=== PATIENT | female | born 1950 | race Caucasian/White ===

== ENCOUNTER → 2017-12-11 13:22 | Outpatient (CLI) | payer MEDICARE, OTHER, SELFPAY ==
--- NOTE | 2017-12-11 13:24 | DI.US.S_ITS ---
PROCEDURE: US PERIPH VENOUS LOW EXTREM RT INDICATIONS: RIGHT CALF EDEMA TECHNIQUE: Real-time imaging, as well as color and pulse Doppler interrogation, were performed of the lower extremity deep veins from the inguinal ligament to the popliteal fossa. COMPARISON: None. FINDINGS: The deep veins are normally compressible, and free of intraluminal thrombus. Color and pulse Doppler demonstrate normal phasic intraluminal flow. There is normal augmentation response to distal compression maneuver. Complex hypoechoic lesions correspond to palpable calf lumps that measure 0.9 x 0.7 x 1.6 cm and 1.7 x 0.8 x 1.4 cm. Lesions have nonspecific imaging characteristics, but hematomas are in the differential; please correlate with clinical findings. IMPRESSION: No evidence of deep vein thrombosis involving the right lower extremity. Dictated by: Negrita Leahy MD, PhD on 12/11/2017 at 14:17 Approved by: Negrita Leahy MD, PhD on 12/11/2017 at 14:19
== END ==
PROVIDERS: PCP Physician Assistant Medical; Visit Provider Physician Assistant
DX: R60.0 Localized edema (principal)
CPT/HCPCS: 93971

== ENCOUNTER 2017-12-16 14:03 | Emergency (ER) | payer MEDICARE, OTHER, SELFPAY ==
[2017-12-16 14:06] VITALS: BP 139/81; PULSE 84; RESP 20; TEMP 36.2; O2SAT 97; BMI 33.7
--- NOTE | 2017-12-16 15:28 | PC.NURSE ---
Addendum entered by Summer Duque R.N. 12/16/17 16:01: Pt c/o 4/10 chest pressure to provider. Did not appreciate any shortness of breath. Original Note: Pt has a knot on the posterior right calf that is painful to touch. She has developed bruising down the posterior calf and lateral ankle with no known injury. Pulses equal, skin warm, dry and intact. Pt recently had a right leg ultrasound at a walk in clinic, which she was told was negatived for DVT. Lung sounds are equal and clear. No shortness of breath or chest pain.
[2017-12-16 15:30] VITALS: BP 137/101; PULSE 82; O2SAT 98
--- NOTE | 2017-12-16 15:38 | ED.CHESTPAIN ---
HPI - Chest Pain <Lois SandovalCEASARP-BC - Last Filed: 12/16/17 21:38> General Chief Complaint: Extremity Problem,Nontraumatic Stated Complaint: SWOLLEN RIGHT LEG, EDEMA IN BOTH LEGS Time Seen by Provider: 12/16/17 15:42 Source: patient and family Mode of arrival: ambulatory Limitations: no limitations History of Present Illness HPI narrative: Patient presents with complaint of lower leg swelling bilaterally. She states that her daughter's friend who was the doctor saw her legs yesterday and said that she had edema and might be in heart failure. She also complains of chest pressure that radiates to her left arm for approximately 4 days. This has been constant. She states nothing makes it better or worse. She also feels short of breath at this time. She does have a history of high blood pressure, high cholesterol and has had a CVA. She took 1 baby aspirin. She also complains of lightheadedness and dizziness. She was seen at the walk-in clinic on the for right lower leg swelling and bruising. She states she felt a knot in her right lower leg. She had a negative vascular ultrasound for clot and findings included a hypoechoic lesion that corresponds to palpable cuff lumps. She currently states that her chest pressure is approximately 4/10. She complains of associated nausea. She denies any specific injury or fall to her right lower extremity. Related Data Home Medications Medication Instructions Recorded Confirmed albuterol sulfate HFA 90 2 puff INHALATION Q6H 12/11/17 12/16/17 mcg/actuation aerosol inhaler amlodipine 5 mg tablet 5 mg PO DAILY 12/11/17 12/16/17 atorvastatin 10 mg tablet 10 mg PO DAILY 12/11/17 12/16/17 cevimeline 30 mg capsule 1 cap PO TID 12/11/17 12/16/17 duloxetine 30 mg capsule,delayed 30 mg PO BEDTIME 12/11/17 12/16/17 release fluticasone 200 mcg-vilanterol 25 1 inhalation INHALATION DAILY 12/11/17 12/16/17 mcg/dose powder for inhalation gabapentin 100 mg capsule 100 mg PO TID 12/11/17 12/16/17 lorazepam 0.5 mg tablet 0.5 mg PO BEDTIME PRN 12/11/17 12/16/17 montelukast 10 mg tablet 10 mg PO BEDTIME 12/11/17 12/16/17 naproxen 500 mg tablet 500 mg PO QD-BID PRN 12/11/17 12/16/17 orphenadrine citrate ER 100 mg 100 - 300 mg PO BEDTIME 12/11/17 12/16/17 tablet,extended release pantoprazole 40 mg tablet,delayed 40 mg PO 1-2XD 12/11/17 12/16/17 release ranitidine 150 mg tablet 150 mg PO BID 12/11/17 12/16/17 valsartan 320 mg tablet 320 mg PO DAILY 12/11/17 12/16/17 5htp 1 dose PO BID 12/16/17 12/16/17 Aerobid M 1 puff INHALATION PRN PRN 12/16/17 12/16/17 Collagen 2 tab PO TID 12/16/17 12/16/17 Vitamin D3 1 tab PO QAM 12/16/17 12/16/17 fluticasone-vilanterol [Breo 1 puff INHALATION QAM 12/16/17 12/16/17 Ellipta] hydrocortisone acetate [Anucort-HC] 1 supp CO PRN PRN 12/16/17 12/16/17 loratadine [Claritin] 10 mg PO PRN PRN 12/16/17 12/16/17 pilocarpine HCl 1 tab PO PRN PRN 12/16/17 12/16/17 terbinafine HCl 1 tab PO DAILY 12/16/17 12/16/17 Allergies Allergy/AdvReac Type Severity Reaction Status Date / Time codeine AdvReac dizzy Verified 12/11/17 12:07 Penicillins AdvReac Verified 12/16/17 14:13 Review of Systems <Lois Sandoval, DRY CELL SEALER-BC - Last Filed: 12/16/17 21:38> Review of Systems GENERAL: Denies chills, fatigue, malaise, fever, sweats. HEENT: Denies sinus pain, ear pain, sore throat, difficulty swallowing, dizziness. RESPIRATORY: Denies dyspnea, cough, wheezing, hemoptysis, sputum. CARDIOVASCULAR: See HPI GASTROINTESTINAL: Denies nausea, vomiting, abdominal pain, diarrhea, constipation, melena. : Denies dysuria, frequency, incontinence, hematuria, urinary retention. MUSCULOSKELETAL: denies weakness, joint pain, or bony pain SKIN: See HPI NEUROLOGIC: See HPI. PSYCHIATRIC: No concerning psychosocial issues. 12 point review of systems is negative except for those stated above Exam <Lois JOSLYN Sandoval-BC - Last Filed: 12/16/17 21:38> Narrative Exam Narrative: GENERAL: This is a well-nourished, well-developed patient, in no acute distress with family at bedside. HEAD: Atraumatic. Normocephalic. No temporal or scalp tenderness. EYES: Pupils equal round and reactive. Extraocular motions intact. No scleral icterus. No injection or drainage. ENT: Nose without bleeding, purulent drainage or septal hematoma. Throat without erythema, tonsillar hypertrophy or exudate. Uvula midline. Airway patent. NECK: Trachea midline. No JVD or lymphadenopathy. Supple, nontender, no meningeal signs. CARDIOVASCULAR: Regular rate and rhythm without murmurs, gallops, or rubs. RESPIRATORY: Clear to auscultation. Breath sounds equal bilaterally. No wheezes, rales, or rhonchi. GASTROINTESTINAL: Abdomen soft, non-tender, nondistended. No hepato-splenomegaly, or palpable masses. No guarding. EXTREMITIES: No clubbing, cyanosis, or edema. No joint tenderness, effusion, or edema noted. No palpable edema noted bilateral lower extremities. Calves are symmetric in size. BACK: Nontender without deformity or crepitance. No flank tenderness. NEURO: AOx3. Strength equal upper and lower extremities bilaterally. Facial nerves grossly intact. SKIN: Ecchymosis noted right ankle. Ecchymosis and palpable mass felt on posterior right calf. Coincides with hypoechoic mass found on vascular ultrasound on 12/11/2017. Initial Vital Signs Initial Vital Signs: Vital Signs Temperature 97.1 F L 12/16/17 14:06 Pulse Rate 84 12/16/17 14:06 Respiratory Rate 20 12/16/17 14:06 Blood Pressure 139/81 H 12/16/17 14:06 Pulse Oximetry 97 12/16/17 14:06 <Madeleine Rico DO - Last Filed: 12/18/17 07:59> Initial Vital Signs Initial Vital Signs: Vital Signs Temperature 97.1 F L 12/16/17 14:06 Pulse Rate 84 12/16/17 14:06 Respiratory Rate 20 12/16/17 14:06 Blood Pressure 139/81 H 12/16/17 14:06 Pulse Oximetry 97 12/16/17 14:06 Course <Lois Sandoval, DRY CELL SEALER-BC - Last Filed: 12/16/17 21:38> Hospital Course: Patient presented to the emergency department with supper complaints including shortness of breath, chest pain for 4 days, concerned about her right lower leg. Given her complaint of chest pain, she had an EKG, chest x-ray and a set of cardiac lab work. Given her dizziness and history of CVA she had a CT scan of her head which showed no acute abnormality. The patient did not want to reimage her right lower leg and declined x-ray or ultrasound today. She did just have an ultrasound a few days ago at the walk-in clinic. She had a negative UA as well as a negative 2nd troponin. The patient remained hemodynamically stable throughout her stay. I checked on the patient several times and spoke with her as well as her [id number]. She is appreciative of the thorough workup. I discussed at length return precautions for chest pain, shortness of breath, altered mental status or concern for CVA. Orders Ordered: Discontinued Medications Aspirin (Aspirin Chew) 243 mg PO NOW ONE Stop: 12/16/17 15:39 Last Admin: 12/16/17 16:10 Dose: 243 mg Ibuprofen (Advil) 400 mg PO NOW ONE Stop: 12/16/17 17:50 Last Admin: 12/16/17 17:57 Dose: 400 mg Vital Signs - 8 hr 12/16/17 14:06 12/16/17 15:30 12/16/17 16:00 Temperature 97.1 F L Pulse Rate 84 82 69 Respiratory Rate 20 14 Blood Pressure 139/81 H Blood Pressure [Right Arm] 137/101 H 144/64 H Pulse Oximetry 97 98 96 12/16/17 17:00 12/16/17 18:30 12/16/17 20:06 Temperature Pulse Rate 69 67 74 Respiratory Rate 22 23 16 Blood Pressure 128/61 H Blood Pressure [Right Arm] 119/59 L 134/55 H Pulse Oximetry 98 98 98 <Madeleine Rico DO - Last Filed: 12/18/17 07:59> Orders Ordered: Discontinued Medications Aspirin (Aspirin Chew) 243 mg PO NOW ONE Stop: 12/16/17 15:39 Last Admin: 12/16/17 16:10 Dose: 243 mg Ibuprofen (Advil) 400 mg PO NOW ONE Stop: 12/16/17 17:50 Last Admin: 12/16/17 17:57 Dose: 400 mg Vital Signs - 8 hr 12/16/17 14:06 12/16/17 15:30 12/16/17 16:00 Temperature 97.1 F L Pulse Rate 84 82 69 Respiratory Rate 20 14 Blood Pressure 139/81 H Blood Pressure [Right Arm] 137/101 H 144/64 H Pulse Oximetry 97 98 96 12/16/17 17:00 12/16/17 18:30 12/16/17 20:06 Temperature Pulse Rate 69 67 74 Respiratory Rate 22 23 16 Blood Pressure 128/61 H Blood Pressure [Right Arm] 119/59 L 134/55 H Pulse Oximetry 98 98 98 MDM - Chest Pain <JOSLYN Chavez- - Last Filed: 12/16/17 21:38> Lab Data Result diagrams: 12/16/17 16:15 12/16/17 16:15 Lab Results 12/16/17 12/16/17 12/16/17 Range/Units 16:15 16:15 16:15 WBC 7.1 (4.5-11.0) X10^3/uL RBC 4.70 (4.0-5.2) X10^6/uL Hgb 13.9 (12.0-16.0) g/dL Hct 41.4 (36-46) % MCV 88.0 (80-100) fL MCH 29.7 (26-34) PG MCHC 33.7 (30-36) % RDW 14.0 (11.6-14.8) % Plt Count 219 (150-400) X10^3/uL Neut % (Auto) 60.8 (50-75) % Lymph % (Auto) 24.6 L (25-40) % [place] % (Auto) 10.4 (3-14) % Eos % (Auto) 3.0 (2-4) % Baso % (Auto) 1.2 (0-2) % Neut # (Auto) 4300 (8764-9657) /uL PT 11.3 (10.1-12.7) SECONDS INR 1.0 (0.9-1.3) Sodium 142 (137-145) mmol/L Potassium 4.2 (3.4-5.1) mmol/L Chloride 103 (98-107) mmol/L Carbon Dioxide 28 (22-32) mmol/L BUN 27 H (7-17) mg/dL Creatinine 0.70 (0.52-1.04) mg/dL Estimated GFR > 60.0 (>60) mL/min BUN/Creatinine Ratio 38.6 H (6-22) Glucose 91 (80-110) mg/dL Calcium 8.9 (8.4-10.2) mg/dL Total Bilirubin 0.8 (0.2-1.3) mg/dL AST 24 (14-36) IU/L ALT 29 (9-52) IU/L Alkaline Phosphatase 67 (38-126) U/L Total Creatine Kinase 38 (30-135) U/L Troponin I < 0.012 (0.01-0.034) ng/mL B-Natriuretic Peptide 44.7 (<100) Total Protein 6.8 (6.3-8.2) g/dL Albumin 4.0 (3.5-5.0) g/dL Globulin 2.8 (1.7-4.1) g/dL Albumin/Globulin Ratio 1.4 (1.0-2.8) Lipase 101 (23-300) U/L // Range/Units 18:40 WBC (4.5-11.0) X10^3/uL RBC (4.0-5.2) X10^6/uL Hgb (12.0-16.0) g/dL Hct (36-46) % MCV (80-100) fL MCH (26-34) PG MCHC (30-36) % RDW (11.6-14.8) % Plt Count (150-400) X10^3/uL Neut % (Auto) (50-75) % Lymph % (Auto) (25-40) % [place] % (Auto) (3-14) % Eos % (Auto) (2-4) % Baso % (Auto) (0-2) % Neut # (Auto) (7655-9380) /uL PT (10.1-12.7) SECONDS INR (0.9-1.3) Sodium (137-145) mmol/L Potassium (3.4-5.1) mmol/L Chloride (98-107) mmol/L Carbon Dioxide (22-32) mmol/L BUN (7-17) mg/dL Creatinine (0.52-1.04) mg/dL Estimated GFR (>60) mL/min BUN/Creatinine Ratio (6-22) Glucose (80-110) mg/dL Calcium (8.4-10.2) mg/dL Total Bilirubin (0.2-1.3) mg/dL AST (14-36) IU/L ALT (9-52) IU/L Alkaline Phosphatase (38-126) U/L Total Creatine Kinase (30-135) U/L Troponin I < 0.012 (0.01-0.034) ng/mL B-Natriuretic Peptide (<100) Total Protein (6.3-8.2) g/dL Albumin (3.5-5.0) g/dL Globulin (1.7-4.1) g/dL Albumin/Globulin Ratio (1.0-2.8) Lipase (23-300) U/L Imaging Data CT scan - head: Radiologist's impression: [place] [address] CT Scan Report Signed Patient: Tess Dove MR#: [id number] : 1950 Acct:[id number] Age/Sex: 66 / F Date of Service: 12/16/17 Loc: Accession Number: [id number] Procedure: CT head/brain wo con Ordering Provider: Lois Sandoval [facility] PROCEDURE: CT HEAD/BRAIN WO CON INDICATIONS: dizzy, history cva TECHNIQUE: Noncontrast 4.5 mm thick angled axial sections acquired from the foramen magnum to the vertex, with coronal and sagittal reformats. For radiation dose reduction, the following was used: automated exposure control, adjustment of mA and/or kV according to patient size. COMPARISON: None. FINDINGS: Image quality: Excellent. CSF spaces: Basal cisterns are patent. No extra-axial fluid collections. The ventricles are symmetric in size and shape. Brain: No intracranial bleeds or masses. There is cerebral volume loss for age, with resultant ventricular and sulcal prominence. There are periventricular and deep white matter chronic small vessel ischemic changes. There is intracranial internal carotid artery atherosclerosis. Skull and face: Calvarium and visualized facial bones appear intact, without suspicious lesions. Sinuses: Visualized sinuses and mastoids are clear. IMPRESSION: 1. No acute intracranial findings. 2. Mild findings likely associated with microvascular ischemic changes. Dictated by: Verónica Wolf M.D. on 12/16/2017 at 16:09 Approved by: Verónica Wolf M.D. on 12/16/2017 at 16:10 Chest x-ray: Radiologist's impression: XRay Report Signed Patient: Tess Dove MR#: [id number] : 1950 Acct:[id number] Age/Sex: 66 / F Date of Service: 12/16/17 Loc: ED Accession Number: [id number] Procedure: XR chest 1V Ordering Provider: Lois Sandoval PROCEDURE: XR CHEST 1V INDICATIONS: chest pain, shortness of breath TECHNIQUE: One view of the chest was acquired. COMPARISON: [facility], , CHEST 2 VIEW, 12/17/2009, 11:53. FINDINGS: Surgical changes and devices: None. Lungs and pleura: No pleural effusions or pneumothorax. Lungs are clear. Mediastinum: Mediastinal contours appear normal. Heart size is normal. Bones and chest wall: No suspicious bony lesions. Overlying soft tissues appear unremarkable. IMPRESSION: No acute process. Dictated by: Holden Toure M.D. on 12/16/2017 at 16:03 Approved by: Holden Toure M.D. on 12/16/2017 at 16:03 ECG Data Attestation: I personally reviewed and interpreted this ECG as follows: Interpretation: Sinus rhythm. Ventricular rate 69. No ST elevation or depression.CO interval 191 MDM Narrative Medical decision making narrative: Patient presented with various complaints including shortness of breath, chest pain for 4 days and concern for CHF. Her daughter's friend who is a physician, to dinner swollen lower legs yesterday, making patient very concerned about her heart function. She had a negative EKG, negative chest x-ray. Given her history of CVA complained of dizziness, I did a head CT which also came back normal. She had a normal CBC, CMP, BNP and 2 sets of negative troponin. She did not want to be admitted for a cardiac rule out. She declined further workup at that point time, stating she wanted to go home. Given that she had 1 baby aspirin at home, I gave her 3 more for a total of 324. She did not want to try nitroglycerin refused that. She attributes her chest pain to her anxiety. Patient was also concerned about her right lower leg pain for which she went to the walk-in clinic a few days ago. She had a negative ultrasound for clot at that point time. She did not want to reimage her lower leg. I discussed at length with patient return precautions to the emergency department clean chest pain, shortness of breath, concern for CVA. Patient family and a questions or concerns. They are going to try [id number] medications for her right leg pain as well as topical creams. And no questions or concerns upon discharge. <Madeleine Rico, DO - Last Filed: 12/18/17 07:59> Lab Data Lab Results 12/16/17 12/16/17 12/16/17 Range/Units 16:15 16:15 16:15 WBC 7.1 (4.5-11.0) X10^3/uL RBC 4.70 (4.0-5.2) X10^6/uL Hgb 13.9 (12.0-16.0) g/dL Hct 41.4 (36-46) % MCV 88.0 (80-100) fL MCH 29.7 (26-34) PG MCHC 33.7 (30-36) % RDW 14.0 (11.6-14.8) % Plt Count 219 (150-400) X10^3/uL Neut % (Auto) 60.8 (50-75) % Lymph % (Auto) 24.6 L (25-40) % [place] % (Auto) 10.4 (3-14) % Eos % (Auto) 3.0 (2-4) % Baso % (Auto) 1.2 (0-2) % Neut # (Auto) 4300 (0449-9076) /uL PT 11.3 (10.1-12.7) SECONDS INR 1.0 (0.9-1.3) Sodium 142 (137-145) mmol/L Potassium 4.2 (3.4-5.1) mmol/L Chloride 103 (98-107) mmol/L Carbon Dioxide 28 (22-32) mmol/L BUN 27 H (7-17) mg/dL Creatinine 0.70 (0.52-1.04) mg/dL Estimated GFR > 60.0 (>60) mL/min BUN/Creatinine Ratio 38.6 H (6-22) Glucose 91 (80-110) mg/dL Calcium 8.9 (8.4-10.2) mg/dL Total Bilirubin 0.8 (0.2-1.3) mg/dL AST 24 (14-36) IU/L ALT 29 (9-52) IU/L Alkaline Phosphatase 67 (38-126) U/L Total Creatine Kinase 38 (30-135) U/L Troponin I < 0.012 (0.01-0.034) ng/mL B-Natriuretic Peptide 44.7 (<100) Total Protein 6.8 (6.3-8.2) g/dL Albumin 4.0 (3.5-5.0) g/dL Globulin 2.8 (1.7-4.1) g/dL Albumin/Globulin Ratio 1.4 (1.0-2.8) Lipase 101 (23-300) U/L // Range/Units 18:40 WBC (4.5-11.0) X10^3/uL RBC (4.0-5.2) X10^6/uL Hgb (12.0-16.0) g/dL Hct (36-46) % MCV (80-100) fL MCH (26-34) PG MCHC (30-36) % RDW (11.6-14.8) % Plt Count (150-400) X10^3/uL Neut % (Auto) (50-75) % Lymph % (Auto) (25-40) % [place] % (Auto) (3-14) % Eos % (Auto) (2-4) % Baso % (Auto) (0-2) % Neut # (Auto) (4069-8873) /uL PT (10.1-12.7) SECONDS INR (0.9-1.3) Sodium (137-145) mmol/L Potassium (3.4-5.1) mmol/L Chloride (98-107) mmol/L Carbon Dioxide (22-32) mmol/L BUN (7-17) mg/dL Creatinine (0.52-1.04) mg/dL Estimated GFR (>60) mL/min BUN/Creatinine Ratio (6-22) Glucose (80-110) mg/dL Calcium (8.4-10.2) mg/dL Total Bilirubin (0.2-1.3) mg/dL AST (14-36) IU/L ALT (9-52) IU/L Alkaline Phosphatase (38-126) U/L Total Creatine Kinase (30-135) U/L Troponin I < 0.012 (0.01-0.034) ng/mL B-Natriuretic Peptide (<100) Total Protein (6.3-8.2) g/dL Albumin (3.5-5.0) g/dL Globulin (1.7-4.1) g/dL Albumin/Globulin Ratio (1.0-2.8) Lipase (23-300) U/L ECG Data Attestation: I personally reviewed and interpreted this ECG as follows: Prior ECG tracings: not available for review Interpretation: Normal sinus rhythm rate 69 Q-waves noted in lead [address] changes Discharge Plan Departure Patient Disposition: Home, Self-Care Clinical Impression: Chest pain, Pain of right leg Discharge Date/Time: 12/16/17 20:06 Interventions: ED Discharge Assessment Last Done: 12/16/17 20:06 Instructions: DI for Atypical Chest Pain, DI for Leg Pain, DI for Chest Pain Activity Restrictions/Additional Instructions: You came in today with dizziness, chest pain, concern for swelling in your legs. Today we checked her blood counts, your liver function, your kidney function, we evaluated for 2 sets of cardiac enzymes which would indicate a problem with your heart. These cardiac enzymes were both negative. You had a good head CT and a good chest x-ray. We did a lab to evaluate for heart failure, which came back normal. You do not have any swelling on your legs today. I would suggest using [id number] pain medication as needed for your leg. If you want to have your leg re-evaluated please come back to the emergency department. You did decline imaging of your leg today. I would use Aspercreme or more Biofreeze on the back of your leg where it hurts. Come back to the emergency department for any acute chest pain, acute shortness of breath, swelling of her leg, or concern for a clot. Prescriptions: No Action atorvastatin 10 mg tablet 10 mg PO DAILY RF: 0 amlodipine 5 mg tablet 5 mg PO DAILY RF: 0 lorazepam 0.5 mg tablet 0.5 mg PO BEDTIME PRN (Reason: Anxiety) RF: 0 pantoprazole 40 mg tablet,delayed release (DR/EC) 40 mg PO 1-2XD RF: 0 ranitidine HCl [Acid Control (ranitidine)] 150 mg tablet 150 mg PO BID RF: 0 cevimeline 30 mg capsule 1 cap PO TID RF: 0 valsartan 320 mg tablet 320 mg PO DAILY RF: 0 orphenadrine citrate 100 mg tablet extended release 100 - 300 mg PO BEDTIME RF: 0 montelukast 10 mg tablet 10 mg PO BEDTIME RF: 0 gabapentin 100 mg capsule 100 mg PO TID RF: 0 albuterol sulfate 90 mcg/actuation HFA aerosol inhaler 2 puff INHALATION Q6H RF: 0 naproxen 500 mg tablet 500 mg PO QD-BID PRN (Reason: Pain, Moderate) RF: 0 duloxetine 30 mg capsule,delayed release(DR/EC) 30 mg PO BEDTIME RF: 0 fluticasone-vilanterol [Breo Ellipta] 200-25 mcg/dose blister with device 1 inhalation INHALATION DAILY RF: 0 terbinafine HCl 250 mg tablet 1 tab PO DAILY RF: 0 5htp 1 dose PO BID RF: 0 Aerobid M inhaler 1 puff Inhalation PRN PRN (Reason: asthma) RF: 0 hydrocortisone acetate [Anucort-HC] 25 mg Suppository 1 supp CO PRN PRN (Reason: Hemorrhoids) RF: 0 loratadine [Claritin] 10 mg Tablet 10 mg PO PRN PRN (Reason: Allergy Symptoms) RF: 0 pilocarpine HCl 7.5 mg Tablet 1 tab PO PRN PRN (Reason: Dry Mouth) RF: 0 fluticasone-vilanterol [Breo Ellipta] 200-25 mcg/dose Blister With Device 1 puff Inhalation QAM RF: 0 Collagen 2 tab PO TID RF: 0 Vitamin D3 1 tab PO QAM RF: 0 <Madeleine Rico DO - Last Filed: 12/18/17 07:59> Cosign ED Attending Agnieszkaature Attestation: I was immediately available in the department for consultation. Documentation has been reviewed. I agree with assessment and plan.
--- NOTE | 2017-12-16 15:41 | DI.CT.S_ITS ---
PROCEDURE: CT HEAD/BRAIN WO CON INDICATIONS: dizzy, history cva TECHNIQUE: Noncontrast 4.5 mm thick angled axial sections acquired from the foramen magnum to the vertex, with coronal and sagittal reformats. For radiation dose reduction, the following was used: automated exposure control, adjustment of mA and/or kV according to patient size. COMPARISON: None. FINDINGS: Image quality: Excellent. CSF spaces: Basal cisterns are patent. No extra-axial fluid collections. The ventricles are symmetric in size and shape. Brain: No intracranial bleeds or masses. There is cerebral volume loss for age, with resultant ventricular and sulcal prominence. There are periventricular and deep white matter chronic small vessel ischemic changes. There is intracranial internal carotid artery atherosclerosis. Skull and face: Calvarium and visualized facial bones appear intact, without suspicious lesions. Sinuses: Visualized sinuses and mastoids are clear. IMPRESSION: 1. No acute intracranial findings. 2. Mild findings likely associated with microvascular ischemic changes. Dictated by: Verónica Wolf M.D. on 12/16/2017 at 16:09 Approved by: Verónica Wolf M.D. on 12/16/2017 at 16:10
[2017-12-16 16:00] VITALS: BP 144/64; PULSE 69; RESP 14; O2SAT 96
[2017-12-16] MEDS: ASPIRIN 81 MG TAB 243 MG PO (16:10)
--- NOTE | 2017-12-16 16:24 | ED_ITS ---
HPI - Chest Pain <Lois SandovalCEASARP-BC - Last Filed: 12/16/17 21:38> General Chief Complaint: Extremity Problem,Nontraumatic Stated Complaint: SWOLLEN RIGHT LEG, EDEMA IN BOTH LEGS Time Seen by Provider: 12/16/17 15:42 Source: patient and family Mode of arrival: ambulatory Limitations: no limitations History of Present Illness HPI narrative: Patient presents with complaint of lower leg swelling bilaterally. She states that her daughter's friend who was the doctor saw her legs yesterday and said that she had edema and might be in heart failure. She also complains of chest pressure that radiates to her left arm for approximately 4 days. This has been constant. She states nothing makes it better or worse. She also feels short of breath at this time. She does have a history of high blood pressure, high cholesterol and has had a CVA. She took 1 baby aspirin. She also complains of lightheadedness and dizziness. She was seen at the walk-in clinic on the for right lower leg swelling and bruising. She states she felt a knot in her right lower leg. She had a negative vascular ultrasound for clot and findings included a hypoechoic lesion that corresponds to palpable cuff lumps. She currently states that her chest pressure is approximately 4/10. She complains of associated nausea. She denies any specific injury or fall to her right lower extremity. Related Data Home Medications Medication Instructions Recorded Confirmed albuterol sulfate HFA 90 2 puff INHALATION Q6H 12/11/17 12/16/17 mcg/actuation aerosol inhaler amlodipine 5 mg tablet 5 mg PO DAILY 12/11/17 12/16/17 atorvastatin 10 mg tablet 10 mg PO DAILY 12/11/17 12/16/17 cevimeline 30 mg capsule 1 cap PO TID 12/11/17 12/16/17 duloxetine 30 mg capsule,delayed 30 mg PO BEDTIME 12/11/17 12/16/17 release fluticasone 200 mcg-vilanterol 25 1 inhalation INHALATION DAILY 12/11/17 mcg/dose powder for inhalation gabapentin 100 mg capsule 100 mg PO TID 12/11/17 12/16/17 lorazepam 0.5 mg tablet 0.5 mg PO BEDTIME PRN 12/11/17 12/16/17 montelukast 10 mg tablet 10 mg PO BEDTIME 12/11/17 12/16/17 naproxen 500 mg tablet 500 mg PO QD-BID PRN 12/11/17 12/16/17 orphenadrine citrate ER 100 mg 100 - 300 mg PO BEDTIME 12/11/17 12/16/17 tablet,extended release pantoprazole 40 mg tablet,delayed 40 mg PO 1-2XD 12/11/17 12/16/17 release ranitidine 150 mg tablet 150 mg PO BID 12/11/17 12/16/17 valsartan 320 mg tablet 320 mg PO DAILY 12/11/17 12/16/17 5htp 1 dose PO BID 12/16/17 12/16/17 Aerobid M 1 puff INHALATION PRN PRN 12/16/17 12/16/17 Collagen 2 tab PO TID 12/16/17 12/16/17 Vitamin D3 1 tab PO QAM 12/16/17 12/16/17 fluticasone-vilanterol [Breo 1 puff INHALATION QAM 12/16/17 12/16/17 Ellipta] hydrocortisone acetate [Anucort-HC] 1 supp [place] PRN PRN 12/16/17 12/16/17 loratadine [Claritin] 10 mg PO PRN PRN 12/16/17 12/16/17 pilocarpine HCl 1 tab PO PRN PRN 12/16/17 12/16/17 terbinafine HCl 1 tab PO DAILY 12/16/17 12/16/17 Allergies Allergy/AdvReac Type Severity Reaction Status Date / Time codeine AdvReac dizzy Verified 12/11/17 12:07 Penicillins AdvReac Verified 12/16/17 14:13 Review of Systems <Lois Sandoval, SPECIAL PROCEDURES NURSE-BC - Last Filed: 12/16/17 21:38> Review of Systems GENERAL: Denies chills, fatigue, malaise, fever, sweats. HEENT: Denies sinus pain, ear pain, sore throat, difficulty swallowing, dizziness. RESPIRATORY: Denies dyspnea, cough, wheezing, hemoptysis, sputum. CARDIOVASCULAR: See HPI GASTROINTESTINAL: Denies nausea, vomiting, abdominal pain, diarrhea, constipation, melena. : Denies dysuria, frequency, incontinence, hematuria, urinary retention. MUSCULOSKELETAL: denies weakness, joint pain, or bony pain SKIN: See HPI NEUROLOGIC: See HPI. PSYCHIATRIC: No concerning psychosocial issues. 12 point review of systems is negative except for those stated above Exam <Lois JOSLYN Sandoval-BC - Last Filed: 12/16/17 21:38> Narrative Exam Narrative: GENERAL: This is a well-nourished, well-developed patient, in no acute distress with family at bedside. HEAD: Atraumatic. Normocephalic. No temporal or scalp tenderness. EYES: Pupils equal round and reactive. Extraocular motions intact. No scleral icterus. No injection or drainage. ENT: Nose without bleeding, purulent drainage or septal hematoma. Throat without erythema, tonsillar hypertrophy or exudate. Uvula midline. Airway patent. NECK: Trachea midline. No JVD or lymphadenopathy. Supple, nontender, no meningeal signs. CARDIOVASCULAR: Regular rate and rhythm without murmurs, gallops, or rubs. RESPIRATORY: Clear to auscultation. Breath sounds equal bilaterally. No wheezes , rales, or rhonchi. GASTROINTESTINAL: Abdomen soft, non-tender, nondistended. No hepato-splenomegaly , or palpable masses. No guarding. EXTREMITIES: No clubbing, cyanosis, or edema. No joint tenderness, effusion, or edema noted. No palpable edema noted bilateral lower extremities. Calves are symmetric in size. BACK: Nontender without deformity or crepitance. No flank tenderness. NEURO: AOx3. Strength equal upper and lower extremities bilaterally. Facial nerves grossly intact. SKIN: Ecchymosis noted right ankle. Ecchymosis and palpable mass felt on posterior right calf. Coincides with hypoechoic mass found on vascular ultrasound on 12/11/2017. Initial Vital Signs Initial Vital Signs: Vital Signs Temperature 97.1 F L 12/16/17 14:06 Pulse Rate 84 12/16/17 14:06 Respiratory Rate 20 12/16/17 14:06 Blood Pressure 139/81 H 12/16/17 14:06 Pulse Oximetry 97 12/16/17 14:06 <Madeleine Rico DO - Last Filed: 12/18/17 07:59> Initial Vital Signs Initial Vital Signs: Vital Signs Temperature 97.1 F L 12/16/17 14:06 Pulse Rate 84 12/16/17 14:06 Respiratory Rate 20 12/16/17 14:06 Blood Pressure 139/81 H 12/16/17 14:06 Pulse Oximetry 97 12/16/17 14:06 Course <Lois Sandoval, SPECIAL PROCEDURES NURSE-BC - Last Filed: 12/16/17 21:38> Hospital Course: Patient presented to the emergency department with supper complaints including shortness of breath, chest pain for 4 days, concerned about her right lower leg. Given her complaint of chest pain, she had an EKG, chest x-ray and a set of cardiac lab work. Given her dizziness and history of CVA she had a CT scan of her head which showed no acute abnormality. The patient did not want to reimage her right lower leg and declined x-ray or ultrasound today. She did just have an ultrasound a few days ago at the walk-in clinic. She had a negative UA as well as a negative 2nd troponin. The patient remained hemodynamically stable throughout her stay. I checked on the patient several times and spoke with her as well as her [id number]. She is appreciative of the thorough workup. I discussed at length return precautions for chest pain, shortness of breath, altered mental status or concern for CVA. Orders Ordered: Discontinued Medications Aspirin (Aspirin Chew) 243 mg PO NOW ONE Stop: 12/16/17 15:39 Last Admin: 12/16/17 16:10 Dose: 243 mg Ibuprofen (Advil) 400 mg PO NOW ONE Stop: 12/16/17 17:50 Last Admin: 12/16/17 17:57 Dose: 400 mg Vital Signs - 8 hr 12/16/17 14:06 12/16/17 15:30 12/16/17 16:00 Temperature 97.1 F L Pulse Rate 84 82 69 Respiratory Rate 20 14 Blood Pressure 139/81 H Blood Pressure [Right Arm] 137/101 H 144/64 H Pulse Oximetry 97 98 96 12/16/17 17:00 12/16/17 18:30 12/16/17 20:06 Temperature Pulse Rate 69 67 74 Respiratory Rate 22 23 16 Blood Pressure 128/61 H Blood Pressure [Right Arm] 119/59 L 134/55 H Pulse Oximetry 98 98 98 <Madeleine Rico DO - Last Filed: 12/18/17 07:59> Orders Ordered: Discontinued Medications Aspirin (Aspirin Chew) 243 mg PO NOW ONE Stop: 12/16/17 15:39 Last Admin: 12/16/17 16:10 Dose: 243 mg Ibuprofen (Advil) 400 mg PO NOW ONE Stop: 12/16/17 17:50 Last Admin: 12/16/17 17:57 Dose: 400 mg Vital Signs - 8 hr 12/16/17 14:06 12/16/17 15:30 12/16/17 16:00 Temperature 97.1 F L Pulse Rate 84 82 69 Respiratory Rate 20 14 Blood Pressure 139/81 H Blood Pressure [Right Arm] 137/101 H 144/64 H Pulse Oximetry 97 98 96 12/16/17 17:00 12/16/17 18:30 12/16/17 20:06 Temperature Pulse Rate 69 67 74 Respiratory Rate 22 23 16 Blood Pressure 128/61 H Blood Pressure [Right Arm] 119/59 L 134/55 H Pulse Oximetry 98 98 98 MDM - Chest Pain <JOSLYN Chavez- - Last Filed: 12/16/17 21:38> Lab Data Result diagrams: 12/16/17 16:15 12/16/17 16:15 Lab Results 12/16/17 12/16/17 12/16/17 Range/Units 16:15 16:15 16:15 WBC 7.1 (4.5-11.0) X10^3/uL RBC 4.70 (4.0-5.2) X10^6/uL Hgb 13.9 (12.0-16.0) g/dL Hct 41.4 (36-46) % MCV 88.0 (80-100) fL MCH 29.7 (26-34) PG MCHC 33.7 (30-36) % RDW 14.0 (11.6-14.8) % Plt Count 219 (150-400) X10^3/uL Neut % (Auto) 60.8 (50-75) % Lymph % (Auto) 24.6 L (25-40) % [place] % (Auto) 10.4 (3-14) % Eos % (Auto) 3.0 (2-4) % Baso % (Auto) 1.2 (0-2) % Neut # (Auto) 4300 (8158-6017) /uL PT 11.3 (10.1-12.7) SECONDS INR 1.0 (0.9-1.3) Sodium 142 (137-145) mmol/L Potassium 4.2 (3.4-5.1) mmol/L Chloride 103 (98-107) mmol/L Carbon Dioxide 28 (22-32) mmol/L BUN 27 H (7-17) mg/dL Creatinine 0.70 (0.52-1.04) mg/dL Estimated GFR > 60.0 (>60) mL/min BUN/Creatinine Ratio 38.6 H (6-22) Glucose 91 (80-110) mg/dL Calcium 8.9 (8.4-10.2) mg/dL Total Bilirubin 0.8 (0.2-1.3) mg/dL AST 24 (14-36) IU/L ALT 29 (9-52) IU/L Alkaline Phosphatase 67 (38-126) U/L Total Creatine Kinase 38 (30-135) U/L Troponin I < 0.012 (0.01-0.034) ng/mL B-Natriuretic Peptide 44.7 (<100) Total Protein 6.8 (6.3-8.2) g/dL Albumin 4.0 (3.5-5.0) g/dL Globulin 2.8 (1.7-4.1) g/dL Albumin/Globulin Ratio 1.4 (1.0-2.8) Lipase 101 (23-300) U/L // Range/Units 18:40 WBC (4.5-11.0) X10^3/uL RBC (4.0-5.2) X10^6/uL Hgb (12.0-16.0) g/dL Hct (36-46) % MCV (80-100) fL MCH (26-34) PG MCHC (30-36) % RDW (11.6-14.8) % Plt Count (150-400) X10^3/uL Neut % (Auto) (50-75) % Lymph % (Auto) (25-40) % [place] % (Auto) (3-14) % Eos % (Auto) (2-4) % Baso % (Auto) (0-2) % Neut # (Auto) (7603-1922) /uL PT (10.1-12.7) SECONDS INR (0.9-1.3) Sodium (137-145) mmol/L Potassium (3.4-5.1) mmol/L Chloride (98-107) mmol/L Carbon Dioxide (22-32) mmol/L BUN (7-17) mg/dL Creatinine (0.52-1.04) mg/dL Estimated GFR (>60) mL/min BUN/Creatinine Ratio (6-22) Glucose (80-110) mg/dL Calcium (8.4-10.2) mg/dL Total Bilirubin (0.2-1.3) mg/dL AST (14-36) IU/L ALT (9-52) IU/L Alkaline Phosphatase (38-126) U/L Total Creatine Kinase (30-135) U/L Troponin I < 0.012 (0.01-0.034) ng/mL B-Natriuretic Peptide (<100) Total Protein (6.3-8.2) g/dL Albumin (3.5-5.0) g/dL Globulin (1.7-4.1) g/dL Albumin/Globulin Ratio (1.0-2.8) Lipase (23-300) U/L Imaging Data CT scan - head: Radiologist's impression: [place] [address] CT Scan Report Signed Patient: Tess Dove MR#: [id number] : 1950 Acct:[id number] Age/Sex: 66 / F Date of Service: 12/16/17 Loc: Accession Number: [id number] Procedure: CT head/brain wo con Ordering Provider: Lois Sandoval [facility] PROCEDURE: CT HEAD/BRAIN WO CON INDICATIONS: dizzy, history cva TECHNIQUE: Noncontrast 4.5 mm thick angled axial sections acquired from the foramen magnum to the vertex, with coronal and sagittal reformats. For radiation dose reduction, the following was used: automated exposure control, adjustment of mA and/or kV according to patient size. COMPARISON: None. FINDINGS: Image quality: Excellent. CSF spaces: Basal cisterns are patent. No extra-axial fluid collections. The ventricles are symmetric in size and shape. Brain: No intracranial bleeds or masses. There is cerebral volume loss for age , with resultant ventricular and sulcal prominence. There are periventricular and deep white matter chronic small vessel ischemic changes. There is intracranial internal carotid artery atherosclerosis. Skull and face: Calvarium and visualized facial bones appear intact, without suspicious lesions. Sinuses: Visualized sinuses and mastoids are clear. IMPRESSION: 1. No acute intracranial findings. 2. Mild findings likely associated with microvascular ischemic changes. Dictated by: Verónica Wolf M.D. on 12/16/2017 at 16:09 Approved by: Verónica Wolf M.D. on 12/16/2017 at 16:10 Chest x-ray: Radiologist's impression: XRay Report Signed Patient: Tess Dove MR#: [id number] : 1950 Acct:[id number] Age/Sex: 66 / F Date of Service: 12/16/17 Loc: ED Accession Number: [id number] Procedure: XR chest 1V Ordering Provider: Lois Sandoval PROCEDURE: XR CHEST 1V INDICATIONS: chest pain, shortness of breath TECHNIQUE: One view of the chest was acquired. COMPARISON: [facility], , CHEST 2 VIEW, 12/17/2009, 11:53. FINDINGS: Surgical changes and devices: None. Lungs and pleura: No pleural effusions or pneumothorax. Lungs are clear. Mediastinum: Mediastinal contours appear normal. Heart size is normal. Bones and chest wall: No suspicious bony lesions. Overlying soft tissues appear unremarkable. IMPRESSION: No acute process. Dictated by: Holden Toure M.D. on 12/16/2017 at 16:03 Approved by: Holden Toure M.D. on 12/16/2017 at 16:03 ECG Data Attestation: I personally reviewed and interpreted this ECG as follows: Interpretation: Sinus rhythm. Ventricular rate 69. No ST elevation or depression.WI interval 191 MDM Narrative Medical decision making narrative: Patient presented with various complaints including shortness of breath, chest pain for 4 days and concern for CHF. Her daughter's friend who is a physician, to dinner swollen lower legs yesterday, making patient very concerned about her heart function. She had a negative EKG, negative chest x-ray. Given her history of CVA complained of dizziness, I did a head CT which also came back normal. She had a normal CBC, CMP, BNP and 2 sets of negative troponin. She did not want to be admitted for a cardiac rule out. She declined further workup at that point time, stating she wanted to go home. Given that she had 1 baby aspirin at home, I gave her 3 more for a total of 324. She did not want to try nitroglycerin refused that. She attributes her chest pain to her anxiety. Patient was also concerned about her right lower leg pain for which she went to the walk-in clinic a few days ago. She had a negative ultrasound for clot at that point time. She did not want to reimage her lower leg. I discussed at length with patient return precautions to the emergency department clean chest pain, shortness of breath, concern for CVA. Patient family and a questions or concerns. They are going to try [id number] medications for her right leg pain as well as topical creams. And no questions or concerns upon discharge. <Madeleine Rico, DO - Last Filed: 12/18/17 07:59> Lab Data Lab Results 12/16/17 12/16/17 12/16/17 Range/Units 16:15 16:15 16:15 WBC 7.1 (4.5-11.0) X10^3/uL RBC 4.70 (4.0-5.2) X10^6/uL Hgb 13.9 (12.0-16.0) g/dL Hct 41.4 (36-46) % MCV 88.0 (80-100) fL MCH 29.7 (26-34) PG MCHC 33.7 (30-36) % RDW 14.0 (11.6-14.8) % Plt Count 219 (150-400) X10^3/uL Neut % (Auto) 60.8 (50-75) % Lymph % (Auto) 24.6 L (25-40) % [place] % (Auto) 10.4 (3-14) % Eos % (Auto) 3.0 (2-4) % Baso % (Auto) 1.2 (0-2) % Neut # (Auto) 4300 (8243-3570) /uL PT 11.3 (10.1-12.7) SECONDS INR 1.0 (0.9-1.3) Sodium 142 (137-145) mmol/L Potassium 4.2 (3.4-5.1) mmol/L Chloride 103 (98-107) mmol/L Carbon Dioxide 28 (22-32) mmol/L BUN 27 H (7-17) mg/dL Creatinine 0.70 (0.52-1.04) mg/dL Estimated GFR > 60.0 (>60) mL/min BUN/Creatinine Ratio 38.6 H (6-22) Glucose 91 (80-110) mg/dL Calcium 8.9 (8.4-10.2) mg/dL Total Bilirubin 0.8 (0.2-1.3) mg/dL AST 24 (14-36) IU/L ALT 29 (9-52) IU/L Alkaline Phosphatase 67 (38-126) U/L Total Creatine Kinase 38 (30-135) U/L Troponin I < 0.012 (0.01-0.034) ng/mL B-Natriuretic Peptide 44.7 (<100) Total Protein 6.8 (6.3-8.2) g/dL Albumin 4.0 (3.5-5.0) g/dL Globulin 2.8 (1.7-4.1) g/dL Albumin/Globulin Ratio 1.4 (1.0-2.8) Lipase 101 (23-300) U/L // Range/Units 18:40 WBC (4.5-11.0) X10^3/uL RBC (4.0-5.2) X10^6/uL Hgb (12.0-16.0) g/dL Hct (36-46) % MCV (80-100) fL MCH (26-34) PG MCHC (30-36) % RDW (11.6-14.8) % Plt Count (150-400) X10^3/uL Neut % (Auto) (50-75) % Lymph % (Auto) (25-40) % [place] % (Auto) (3-14) % Eos % (Auto) (2-4) % Baso % (Auto) (0-2) % Neut # (Auto) (5291-9812) /uL PT (10.1-12.7) SECONDS INR (0.9-1.3) Sodium (137-145) mmol/L Potassium (3.4-5.1) mmol/L Chloride (98-107) mmol/L Carbon Dioxide (22-32) mmol/L BUN (7-17) mg/dL Creatinine (0.52-1.04) mg/dL Estimated GFR (>60) mL/min BUN/Creatinine Ratio (6-22) Glucose (80-110) mg/dL Calcium (8.4-10.2) mg/dL Total Bilirubin (0.2-1.3) mg/dL AST (14-36) IU/L ALT (9-52) IU/L Alkaline Phosphatase (38-126) U/L Total Creatine Kinase (30-135) U/L Troponin I < 0.012 (0.01-0.034) ng/mL B-Natriuretic Peptide (<100) Total Protein (6.3-8.2) g/dL Albumin (3.5-5.0) g/dL Globulin (1.7-4.1) g/dL Albumin/Globulin Ratio (1.0-2.8) Lipase (23-300) U/L ECG Data Attestation: I personally reviewed and interpreted this ECG as follows: Prior ECG tracings: not available for review Interpretation: Normal sinus rhythm rate 69 Q-waves noted in lead [address] changes Discharge Plan Departure Patient Disposition: Home, Self-Care Clinical Impression: Chest pain, Pain of right leg Discharge Date/Time: 12/16/17 20:06 Interventions: ED Discharge Assessment Last Done: 12/16/17 20:06 Instructions: DI for Atypical Chest Pain, DI for Leg Pain, DI for Chest Pain Activity Restrictions/Additional Instructions: You came in today with dizziness, chest pain, concern for swelling in your legs. Today we checked her blood counts, your liver function, your kidney function, we evaluated for 2 sets of cardiac enzymes which would indicate a problem with your heart. These cardiac enzymes were both negative. You had a good head CT and a good chest x-ray. We did a lab to evaluate for heart failure , which came back normal. You do not have any swelling on your legs today. I would suggest using [id number] pain medication as needed for your leg. If you want to have your leg re-evaluated please come back to the emergency department. You did decline imaging of your leg today. I would use Aspercreme or more Biofreeze on the back of your leg where it hurts. Come back to the emergency department for any acute chest pain, acute shortness of breath, swelling of her leg, or concern for a clot. Prescriptions: No Action atorvastatin 10 mg tablet 10 mg PO DAILY RF: 0 amlodipine 5 mg tablet 5 mg PO DAILY RF: 0 lorazepam 0.5 mg tablet 0.5 mg PO BEDTIME PRN (Reason: Anxiety) RF: 0 pantoprazole 40 mg tablet,delayed release (DR/EC) 40 mg PO 1-2XD RF: 0 ranitidine HCl [Acid Control (ranitidine)] 150 mg tablet 150 mg PO BID RF: 0 cevimeline 30 mg capsule 1 cap PO TID RF: 0 valsartan 320 mg tablet 320 mg PO DAILY RF: 0 orphenadrine citrate 100 mg tablet extended release 100 - 300 mg PO BEDTIME RF: 0 montelukast 10 mg tablet 10 mg PO BEDTIME RF: 0 gabapentin 100 mg capsule 100 mg PO TID RF: 0 albuterol sulfate 90 mcg/actuation HFA aerosol inhaler 2 puff INHALATION Q6H RF: 0 naproxen 500 mg tablet 500 mg PO QD-BID PRN (Reason: Pain, Moderate) RF: 0 duloxetine 30 mg capsule,delayed release(DR/EC) 30 mg PO BEDTIME RF: 0 fluticasone-vilanterol [Breo Ellipta] 200-25 mcg/dose blister with device 1 inhalation INHALATION DAILY RF: 0 terbinafine HCl 250 mg tablet 1 tab PO DAILY RF: 0 5htp 1 dose PO BID RF: 0 Aerobid M inhaler 1 puff Inhalation PRN PRN (Reason: asthma) RF: 0 hydrocortisone acetate [Anucort-HC] 25 mg Suppository 1 supp [place] PRN PRN (Reason: Hemorrhoids) RF: 0 loratadine [Claritin] 10 mg Tablet 10 mg PO PRN PRN (Reason: Allergy Symptoms) RF: 0 pilocarpine HCl 7.5 mg Tablet 1 tab PO PRN PRN (Reason: Dry Mouth) RF: 0 fluticasone-vilanterol [Breo Ellipta] 200-25 mcg/dose Blister With Device 1 puff Inhalation QAM RF: 0 Collagen 2 tab PO TID RF: 0 Vitamin D3 1 tab PO QAM RF: 0 <Madeleine Rico DO - Last Filed: 12/18/17 07:59> Cosign ED Attending Agnieszkaature Attestation: I was immediately available in the department for consultation. Documentation has been reviewed. I agree with assessment and plan.
[2017-12-16 16:32] LABS: Prothrombin Time 11.3 SECONDS (10.1-12.7)
[2017-12-16 16:33] LABS: Add Manual Diff / Slide Review NO; Basophils Percent Auto 1.2 % (0-2); Hematocrit 41.4 % (36-46); Hemoglobin 13.9 g/dL (12.0-16.0); Lymphocytes Percent Auto 24.6 % (25-40); Mean Corpuscular HGB Conc 33.7 % (30-36); Mean Corpuscular Hemoglobin 29.7 PG (26-34); Monocytes Percent Auto 10.4 % (3-14); Neutrophils Absolute Auto 4300 /uL (3000-5900); Neutrophils Percent Auto 60.8 % (50-75); Platelet Count 219 X10^3/uL (150-400); White Blood Cell Count 7.1 X10^3/uL (4.5-11.0)
[2017-12-16 16:37] LABS: Alanine Aminotransferase 29 IU/L (9-52); Albumin Globulin Ratio 1.4 (1.0-2.8); Alkaline Phosphatase 67 U/L (38-126); Aspartate Aminotransferase 24 IU/L (14-36); BUN Creatinine Ratio 38.6 (6-22); Bilirubin Total 0.8 mg/dL (0.2-1.3); Blood Urea Nitrogen 27 mg/dL (7-17); Calcium 8.9 mg/dL (8.4-10.2); Carbon Dioxide 28 mmol/L (22-32); Chloride 103 mmol/L (98-107); Creatine Kinase 38 U/L (30-135); Estimated Glomerular Filt Rate > 60.0 mL/min (>60); Globulin 2.8 g/dL (1.7-4.1); Glucose 91 mg/dL (80-110); HEMOLYSIS 15 (0-50); Lipase 101 U/L (23-300); Potassium 4.2 mmol/L (3.4-5.1); Sodium 142 mmol/L (137-145); Total Protein 6.8 g/dL (6.3-8.2)
[2017-12-16 16:50] LABS: B Type Natriuretic Peptide 44.7 (<100); Troponin I < 0.012 ng/mL (0.01-0.034)
[2017-12-16 17:00] VITALS: BP 119/59; PULSE 69; RESP 22; O2SAT 98
[2017-12-16] MEDS: IBUPROFEN 400 MG TABLET PO (17:57)
[2017-12-16 18:30] VITALS: BP 134/55; PULSE 67; RESP 23; O2SAT 98
[2017-12-16 19:22] LABS: Troponin I < 0.012 ng/mL (0.01-0.034)
[2017-12-16 20:06] VITALS: BP 128/61; PULSE 74; RESP 16; O2SAT 98
== END 2017-12-16 20:06 | disposition home or self-care (01) ==
PROVIDERS: Emergency Provider Nurse Practitioner Family; PCP Physician Assistant Medical
DX: R07.9 Chest pain, unspecified (principal); M79.604 Pain in right leg; R42 Dizziness and giddiness
CPT/HCPCS: 36591; 70450; 71045; 80053; 81003; 82550; 82553; 83690; 83880; 84484; 85025; 85610; 93005; 99283; 99285

== ENCOUNTER → 2018-01-20 09:16 | Outpatient (CLI) | payer MEDICARE, OTHER, SELFPAY | PROVIDERS: PCP Physician Assistant Medical; Visit Provider Physician Assistant | DX: J02.9 Acute pharyngitis, unspecified (principal) | CPT/HCPCS: 87070 ==